=== PATIENT | male | born 1960 | race Caucasian/White ===

== ENCOUNTER → 2017-02-21 | Outpatient (CLI) | payer BC ==
--- NOTE | 2017-02-21 17:19 | PCVCIMAG ---
APPROVED REPORT Study performed: 02/21/2017 13:20:24 EXAM: Comprehensive 2D, Doppler, and color-flow Echocardiogram Patient Location: Echo lab Status: routine BSA: 2.13 HR: 85 bpm Rhythm: Atrial Flutter Other Information Study Quality: Good Indications Atrial Fibrillation Aflutter, Mitral Valve Repair. Brooks-Maze Procedure, ASD closure. 2D Dimensions LVEF(%): 70.15 (>50%) IVSd: 12.20 (7-11mm)LVOT Diam: 21.31 (18-24mm) LVDd: 47.12 mm PWd: 8.09 (7-11mm)Ascending Ao: 31.16 (22-36mm) LVDs: 28.45 (25-40mm) Left Atrium: 55.05 (27-40mm) Aortic Root: 26.59 mm LV Single Plane 4CH: 53.47 % LV Single Plane 2CH: 57.94 %Cornejo's LVEF: 55.71 % Biplane EF: 54.6 % Volumes Left Atrial Volume (Systole) Single Plane 4CH: 113.60 mLSingle Plane 2CH: 95.54 mL LA ESV Index: 44.00 mL/m2 Aortic Valve AoV Peak Juliano.: 1.43 m/s AO Peak Gr.: 8.20 mmHgLVOT Max P.83 mmHg LVOT Max V: 1.21 m/s PHUONG Vmax: 3.01 cm2 Pulmonary Valve PV Peak Gr.: 3.46 mmHg Tricuspid Valve TR Peak Juliano.: 2.77 m/s TR Peak Gr.: 30.68 mmHg Left Ventricle The left ventricle is normal size. There is normal LV segmental wall motion. There is normal left ventricular wall thickness. Left ventricular systolic function is normal. The left ventricular ejection fraction is within the normal range. LVEF is 60%. This study is not technically sufficient to allow evaluation of the LV diastolic function. Right Ventricle The right ventricle is normal size. The right ventricular systolic function is normal. Atria Left atrium is dilated. The right atrium size is normal. Aortic Valve The aortic valve is normal in structure. No aortic regurgitation is present. There is no aortic valvular stenosis. Mitral Valve Changes consistent with posterior mitral leaflet repair There is no mitral valve regurgitation noted. No evidence of mitral valve stenosis. Tricuspid Valve The tricuspid valve is normal in structure. Trace tricuspid regurgitation. Pulmonary artery pressure is 38mmhg. Pulmonic Valve The pulmonary valve is normal in structure. There is no pulmonic valvular regurgitation. Great Vessels The aortic root is normal in size. IVC is normal in size and collapses with >50% inspiration Pericardium There is no pericardial effusion. <Conclusion> Left ventricular systolic function is normal. There is normal LV segmental wall motion. LVEF 60%. Left atrial enlargement The aortic valve is normal in structure. No aortic regurgitation or stenosis Changes consistent with posterior mitral leaflet repair. No mitral valve regurgitation or stenosis Pulmonary artery pressure of 38mmHg There is no pericardial effusion.
== END | disposition home or self-care (01) ==
LOC: PCVCIMAG 13:19
PROVIDERS: ATTEND Internal Medicine
DX: I48.92 Unspecified atrial flutter (principal); I48.91 Unspecified atrial fibrillation
CPT/HCPCS: 93306

== ENCOUNTER → 2017-07-23 | Outpatient (CLI) | payer BC | END | disposition home or self-care (01) | LOC: PCVCIMAG 12:42 | DX: M79.605 Pain in left leg (principal); M79.89 Other specified soft tissue disorders | CPT/HCPCS: 93971 ==

== ENCOUNTER → 2018-10-06 | Outpatient (CLI) | payer BC ==
--- NOTE | 2018-10-06 17:22 | PCVCIMAG ---
APPROVED REPORT Study performed: 10/06/2018 14:02:55 Exam: Stress Echocardiogram Indication: Hyperlipidemia, Hypertension, Afib, Mitral Valve Repair Patient Location: Echo lab Stress Nurse: Charito Yoon RN Status: routine Ht: 5 ft 9 in HR: 85 bpm BP: 154/70 mmHg Rhythm: NSR Medical History Medical History: Mitral Valve Repair, Ablation Procedure The patient underwent an Exercise Stress Test using the Yaya Protocol. Blood pressure, heart rate, and EKG were monitored. An Echocardiogram was performed by audiovisual aids technician in four stages in quad fashion. At peak stress, four selected images were obtained and placed side by side with resting images for comparison. Stress Test Details Stress Test: Exercise stress testing was performed using a Yaya protocol. HR Resting HR: 85 bpmMax Heart Rate (APMHR): 161 bpm Max HR Achieved: 164 bpmTarget HR (85% APMHR): 136 bpm % of APMHR: 101 Recovery HR: 90 bpm HR response to stress: Normal HR response to stress BP Resting BP: 154/70 mmHg Max BP: 220/78 mmHg Recovery BP: 174/82 mmHg BP response to stress: Normal blood pressure response to stress. ECG Resting ECG: Sinus Rhythm Stress ECG: Sinus Rhythm ST Change: Normal Maximum ST Deviation: 0.5 mm Arrhythmia: VPC's Recovery ECG: Sinus Rhythm Recovery ST Change: Normal Recovery ST Deviation: 0 mm Recovery Arrhythmia: None Clinical Reason for Termination: Maximal effort Exercise duration: 10 min 38 sec Highest Stage Achieved: Stage 3: 3.4 mph at 14% grade. Overall Exercise Capacity for Age: Normal Angina Score: None Stress ECG Conclusion Clinical: Non-ischemic ECG: Non-ischemic Vega Treadmill Score is 7.5 which is Low risk. Pre-Stress Echo The resting Echocardiogram showed normal left ventricular contractility with an estimated Ejection Fraction of about 55-60%. Normal wall motion in all segments on baseline images. Post-Stress Echo The stress Echocardiogram showed normal left ventricular contractility with an estimated Ejection Fraction of about 60-65%. Normal augmentation of wall motion in all segments on post stress images. Clinical No clinical or ECG evidence for ischemia. Conclusion Clinical Response: Non-ischemic Exercise Capacity: Average Stress ECG Response: Non-ischemic Stress Echo Images: Non-ischemic The left ventricle is normal in size and wall thickness in both the rest and stress images. Normal stress echocardiogram with maximal exercise stress. Other Information Study Quality: Good <Conclusion> The left ventricle is normal in size and wall thickness in both the rest and stress images. Normal stress echocardiogram with maximal exercise stress.
--- NOTE | 2018-10-07 07:54 | PCVCIMAG ---
APPROVED REPORT Study performed: 10/06/2018 13:30:20 EXAM: Comprehensive 2D, Doppler, and color-flow Echocardiogram Patient Location: Echo lab Status: routine BSA: 2.17 HR: 68 bpmBP: 154/70 mmHg Rhythm: NSR Other Information Study Quality: Adequate Risk Factors: Cardiac Risk Factors: HTN, Hyperlipidemia, DM Indications Paroxysmal Atrial Fibrillation S/P Mitral Valve Repair S/P Modified Brooks-Maze III Ablation S/P ASD Closure 2D Dimensions IVSd: 12.05 (7-11mm)LVOT Diam: 21.00 (18-24mm) LVDd: 52.94 mm PWd: 10.54 (7-11mm)Ascending Ao: 32.34 (22-36mm) LVDs: 36.47 (25-40mm) Left Atrium: 59.50 (27-40mm) Aortic Root: 30.57 mm LV Single Plane 4CH: 61.29 % LV Single Plane 2CH: 58.24 % Biplane EF: 60.8 % Volumes Left Atrial Volume (Systole) Single Plane 4CH: 141.90 mLSingle Plane 2CH: 136.33 mL LA ESV Index: 70.00 mL/m2 Aortic Valve AoV Peak Juliano.: 1.72 m/s AO Peak Gr.: 11.81 mmHgLVOT Max P.56 mmHg LVOT Max V: 1.37 m/s PHUONG Vmax: 2.88 cm2 Mitral Valve E/A Ratio: 3.1 MV Decel. Time: 299.10 ms MV E Max Juliano.: 1.57 m/s MV A Juliano.: 0.51 m/s IVRT: 79.58 ms TDI E/Lateral E': 12.08E/Medial E': 22.43 Medial E' Juliano.: 0.07 m/s Lateral E' Juliano.: 0.13 m/s Pulmonary Valve PV Peak Gr.: 2.73 mmHg Pulmonary Vein P Vein S: 0.28 m/sP Vein A: 0.37 m/s P Vein D: 0.42 m/sP Vein A Dur.: 110.7 msec P Vein S/D Ratio: 0.67 Tricuspid Valve TR Peak Juliano.: 2.72 m/sRAP Estimate: 7.00 mmHg TR Peak Gr.: 29.49 mmHg PA Pressure: 37.00 mmHg Left Ventricle The left ventricle is normal size. There is normal LV segmental wall motion. Borderline concentric left ventricular hypertrophy. Left ventricular systolic function is normal. The left ventricular ejection fraction is within the normal range. LVEF is 60%. Unable to assess Right Ventricle The right ventricle is normal size. The right ventricular systolic function is normal. Atria Left atrium is dilated. Right atrium is dilated. Aortic Valve The aortic valve is normal in structure. No aortic regurgitation is present. There is no aortic valvular stenosis. Mitral Valve Changes consistent with posterior mitral leaflet repair. There is no mitral valve regurgitation noted. No evidence of mitral valve stenosis. Tricuspid Valve The tricuspid valve is normal in structure. Trace tricuspid regurgitation. Pulmonary artery pressure is 35 mmHg. Pulmonic Valve The pulmonary valve is normal in structure. Mild pulmonic regurgitation. Great Vessels The aortic root is normal in size. IVC is normal in size and collapses >50% with inspiration. Pericardium There is no pericardial effusion. <Conclusion> Left ventricular systolic function is normal. There is normal LV segmental wall motion. LVEF is 60%. Left atrium is dilated. The aortic valve is normal in structure. No aortic regurgitation or stenosis. Changes consistent with posterior mitral leaflet repair. No mitral valve regurgitation noted. Trace tricuspid regurgitation. Pulmonary artery pressure of 35 mmHg. There is no pericardial effusion.
== END | disposition home or self-care (01) ==
LOC: PCVCIMAG 13:20
PROVIDERS: ATTEND Internal Medicine
DX: I48.91 Unspecified atrial fibrillation (principal); I10 Essential (primary) hypertension; E78.5 Hyperlipidemia, unspecified; I48.92 Unspecified atrial flutter; R93.1 Abnormal findings on diagnostic imaging of heart and coronary circulation
CPT/HCPCS: 93306; 93351